=== PATIENT | male | born 1980 | race Caucasian/White ===

== ENCOUNTER 2020-06-16 08:54 | Inpatient (IN) | payer BC ==
[~2020-06-16] VITALS: Ht 172.7 cm; Wt 93.3 kg
[2020-06-16] VITALS (10 sets, daily range): BP systolic 118–144; BP diastolic 78–103
[2020-06-16] MEDS ORDERED: OXCA300T19 PO (09:00)
[2020-06-16] MEDS ORDERED: TRAM50TA PO (09:00)
[2020-06-16] MEDS ORDERED: MIRT15TA3 PO (09:00)
--- NOTE | 2020-06-16 09:29 | PDOC2 ---
[facility] 06/16/20 0929: CONSULT Date of Consult Date of Consult DATE: 06/16/20 TIME: 09:26 Reason for Consult Reason for Consult: appendicitis Referring Physician Referring Physician: ER Identification/Chief Complaint Chief Complaint abdominal pain Source Source: Chart review, Patient History of Present Illness Reason for Visit: RLQ pain starting last night. Associated nausea, no diarrhea or constipation. No similar symptoms in past. Pain medication helps alleviate. No aggravating factors Past Medical History Psych: Anxiety Past Surgical History Past Surgical History: No pertinent history Family History Family History: Other (noncontributory to current illness ) Social History <1 pack per day (vap) ALCOHOL: occassional Drugs: None Lives: Alone Current Medications Current Medications Active Scripts Active Reported Oxcarbazepine 300 Mg Tablet 1 Tab PO HS 30 Days Mirtazapine 15 Mg Tablet 1 Tab PO QHS Tramadol Hcl 50 Mg Tablet 50 Mg PO Q4HRS PRN Allergies Allergies: Coded Allergies: No Known Drug Allergies (Unverified , 06/16/20) ROS General: No: Chills, Other (fevers ) PSYCHOLOGICAL ROS: No: Anxiety, Depression Eyes: No Blurry vision, No Double vision HEENT: No: Heacaches, Sore Throat Hematological and Lymphatic: No: Bleeding Problems, Blood Clots Respiratory: No: Cough, Shortness of breath Cardiovascular: No Chest Pain, No Palpitations Gastrointestinal: Yes Other (see hpi) Genitourinary: No Dysuria, No Hematuria Musculoskeletal: No Joint Pain, No Muscle Pain Neurological: No Impaired Coord/balance, No Numbness/Tingling Skin: No Pruritus, No Rash Physical Exam General: Alert, Oriented X3, Cooperative HEENT: Atraumatic, PERRLA Lungs: Clear to auscultation, Normal air movement Heart: Regular rate, Normal S1, Normal S2 Abdomen: Soft, Other (ND, TTP RLQ ) Extremities: No clubbing, No cyanosis Skin: No rashes, No breakdown Neuro: Normal gait, Normal speech Psych/Mental Status: Mental status NL, Mood NL MUSCULOSKELETAL: No deformity, No swelling Vitals VITALS Vital Signs Date Time Temp Pulse Resp B/P (MAP) Pulse Ox O2 Delivery O2 Flow Rate FiO2 06/16/20 08:15 98.1 84 20 144/103 (117) 97 Room Air 98.1 Assessment/Plan Assessment/Plan acute appendicitis plan OR today ELAINE,CRISTINA W MD 06/16/20 1413: CONSULT Assessment/Plan Assessment/Plan Patient seen and examined by me currently resting comfortably in bed does describe some right lower quadrant abdominal pain abdomen is soft nondistended tender to palpation right lower quadrant CT scan reviewed showing signs consistent with acute appendicitis without abscess. Plan for laparoscopic appendectomy today. Agree with Neelima assessment and plan GUILLE BLACKMAN APRN Jun 16, 2020 09:29 CRISTINA ELAINE MD Jun 16, 2020 14:13
[2020-06-16] MEDS ORDERED: cefOXitin SODIUM IV Push 1 GM VIAL. IVP PRN (09:30)
--- NOTE | 2020-06-16 09:30 | PDOC1 ---
History and Physical Date of Admission Date of Admission DATE: 06/16/20 TIME: 09:29 Identification/Chief Complaint Chief Complaint Abdominal Pain Source Source: Patient History of Present Illness History of Present Illness Mr Tomlin is a 39-year-old male [place] w/ PMHx nephrolithiasis, tobacco use (vape) who awoken from his sleep around midnight with sudden onset right lower quadrant abdominal pain and came to [facility] ED and was transferred to [facility] for further care. The patient was feeling fine most the day, did eat a few kazakh sausage sandwiches for dinner and experienced some abdominal fullness and some ep igastric and periumbilical tenderness which went away by the time he went to bed, took his sleep medication and PTSD medication. The pain is deep and cramping. It is moderate in intensity. Patient had 2 normal bowel movements prior to falling asleep. He has not had any nausea or vomiting. Denies fever or chills. He does have history of kidney stones but states this only hurts in the front and so it feels different. No history of abdominal surgery, only other surgery is wisdom tooth extraction, no abnormal bleeding with this. Labs significant for NA 141, K3.9, BUN 17, CR 1.4, glucose 120, WBC 12.9, Hb 15.5, platelets 237, LFTs within normal limits. Rapid COVID-19 was negative. Past Medical History Psych: Anxiety, Other (PTSD) Past Surgical History Past Surgical History: No pertinent history Family History Family History: Other (noncontributory to current illness ) Social History Smoke: <1 pack per day (vap) ALCOHOL: occassional Drugs: None Current Medications Current Medications Active Scripts Active Reported Oxcarbazepine 300 Mg Tablet 1 Tab PO HS 30 Days Mirtazapine 15 Mg Tablet 1 Tab PO QHS Tramadol Hcl 50 Mg Tablet 50 Mg PO Q4HRS PRN Allergies Allergies: Coded Allergies: No Known Drug Allergies (Unverified , 06/16/20) ROS General: No: Chills, Night Sweats, Fatigue, Malaise, Appetite, Other PSYCHOLOGICAL ROS: No: Anxiety, Behavioral Disorder, Concentration difficultie, Decreased libido, Depression, Disorientation, Hallucinations, Hostility, Irritablity, Memory difficulties, Mood Swings, Obsessive thoughts, Physical abuse, Sexual abuse, Sleep disturbances, Suicidal ideation, Other Eyes: No Blurry vision, No Decreased vision, No Double vision, No Dry eyes, No Excessive tearing, No Eye Pain, No Itchy Eyes, No Loss of vision, No Photophobia, No Scotomata, No Uses contacts, No Uses glasses, No Other HEENT: No: Heacaches, Visual Changes, Hearing change, Nasal congestion, Nasal discharge, Oral lesions, Sinus pain, Sore Throat, Epistaxis, Sneezing, Snoring, Tinnitus, Vertigo, Vocal changes, Other ALLERGY AND IMMUNOLOGY: No: Hives, Insect Bite Sensitivity, Itchy/Watery Eyes, Nasal Congestion, Post Nasal Drip, Seasonal Allergies, Other Hematological and Lymphatic: No: Bleeding Problems, Blood Clots, Blood Transfusions, Brusing, Night Sweats, Pallor, Swollen Lymph Nodes, Other ENDOCRINE: No: Breast Changes, Galactorrhea, Hair Pattern Changes, Hot Flashes, Malaise/lethargy, Mood Swings, Palpitations, Polydipsia/polyuria, Skin Changes, Temperature Intolerance, Unexpected Weight Changes, Other Breast: No New/Changing Breast Lumps, No Nipple changes, No Nipple discharge, No Other Respiratory: No: Cough, Hemoptysis, Orthopnea, Pleuritic Pain, Shortness of breath, SOB with excertion, Sputum Changes, Stridor, Tachypnea, Wheezing, Other Cardiovascular: No Chest Pain, No Palpitations, No Orthopnea, No Paroxysmal Noc. Dyspnea, No Edema, No Lt Headedness, No Other Gastrointestinal: Yes Abdominal Pain; No Nausea, No Vomiting, No Diarrhea, No Constipation, No Melena, No Hematochezia, No Other Genitourinary: No Dysuria, No Frequency, No Incontinence, No Hematuria, No Retention, No Discharge, No Urgency, No Pain, No Flank Pain, No Other, No , No , No , No , No , No , No Musculoskeletal: No Gait Disturbance, No Joint Pain, No Joint Stiffness, No Joint Swelling, No Muscle Pain, No Muscular Weakness, No Pain In:, No Swelling In:, No Other Neurological: No Behavorial Changes, No Bowel/Bladder ControlChng, No Confusion, No Dizziness, No Gait Disturbance, No Headaches, No Impaired Coord/balance, No Memory Loss, No Numbness/Tingling, No Seizures, No Speech Problems, No Tremors, No Visual Changes, No Weakness, No Other Skin: No Dry Skin, No Eczema, No Hair Changes, No Lumps, No Mole Changes, No Mottling, No Nail Changes, No Pruritus, No Rash, No Skin Lesion Changes, No Other, No Acne Physical Exam General: Alert, Oriented X3, Cooperative, mild distress HEENT: Atraumatic, PERRLA, EOMI, Mucous membr. moist/pink Lungs: Clear to auscultation, Normal air movement Heart: S1S2, RRR, no thrills, no rubs, no gallops, no murmurs Abdomen: Normal bowel sounds, Soft, No hepatosplenomegaly, No masses, Other (RLQ tender) Rectal Exam: not examined Extremities: No clubbing, No cyanosis, No edema, Normal pulses, No tenderness/swelling Skin: No rashes, No breakdown, No significant lesion Neuro: Normal gait, Normal speech, Strength at 5/5 X4 ext, Normal tone, Sensation intact, Cranial nerves 3-12 NL, Reflexes 2+ Psych/Mental Status: Mental status NL, Mood NL Vitals Vitals Vital Signs Date Time Temp Pulse Resp B/P (MAP) Pulse Ox O2 Delivery O2 Flow Rate FiO2 06/16/20 08:15 98.1 84 20 144/103 (117) 97 Room Air 98.[address] images obtained through the abdomen and pelvis with contrast. Abdominal aorta is not aneurysmal. No intrahepatic bile duct dilation. The liver is low density which can be seen with fatty infiltration. No peripancreatic fluid collection. Spleen unremarkable. Nonobstructive right renal stone without hydronephrosis. Urinary bladder is partially distended. Wall of the urinary bladder is mildly prominent but the latter is not very distended. The appendix measures approximately 8 mm with adjacent inflammatory changes and mucosal hyperenhancement. There is a couple of mildly prominent small bowel loops in a nonspecific pattern. Degenerative changes the spine. Mild scoliotic curvature the spine. IMPRESSION: The appendix is mildly dilated with adjacent edema to the fat concerning for acute appendicitis. Nonobstructive right renal stone. The urinary bladder wall is mildly prominent but not very distended therefore portion of this could be secondary to lack of distention VTE Prophylaxis Ordered VTE Prophylaxis Devices: No VTE Pharmacological Prophylaxi: No Assessment/Plan Assessment/Plan A/P: Appendicitis - no sign of perforation. Surgery consulted, cont zosyn. pain control H/o nephrolithiasis - stable CATRACHITA - likely vasomotor nephropathy. Hydrate Sepsis - 2/2 appendicitis, started on zosyn, will continue. FEN - NPO PPX - SCDs FULL CODE Dispo - inpatient. No further medical testing prior to surgery. Low cardiac risk for surgery. Justifications for Admission Other Justification BALTA WOODRUFF MD Jun 16, 2020 09:30
[2020-06-16] MEDS ORDERED: traMADol 50 MG TABLET PO PRN (09:45)
[2020-06-16] MEDS ORDERED: ZOLPIDEM 5 MG TABLET. PO PRN (09:45)
[2020-06-16] MEDS ORDERED: ONDANSETRON PF 4 MG/2 ML VIAL. IV PRN (09:45)
[2020-06-16] MEDS ORDERED: MORPHINE SULFATE 2 MG/ML VIAL. IV PRN (09:45)
[2020-06-16] MEDS ORDERED: ACETAMINOPHEN 650 MG SUPP.RECT. PR PRN (09:45)
[2020-06-16] MEDS ORDERED: ACETAMINOPHEN 325 MG TABLET. PO PRN (09:45)
[2020-06-16] MEDS: PIPERACILLIN/TAZOBACTAM 3.375 GM in IV NORMAL SALINE 50ML 50 ML IV SCH ×2 (10:32→19:44)
[2020-06-16] MEDS: IV NORMAL SALINE 1000ML BAG 1,000 ML IV SCH ×2 (10:32→19:31)
[2020-06-16] MEDS: NICOTINE 21MG PATCH. TD SCH (10:40)
--- NOTE | 2020-06-16 13:58 | NUR ---
TRANSFERRED FROM [facility] ER. STARTED HAVE RLQ PAIN LAST NIGHT AROUND MIDNIGHT. IT WOKE HIM UP AND THEN THE PAIN BECAME PROGRESSIVELY WORSE. DR. ELAINE AND RANJAN HERE FOR ADMISSION. ZOSYN STARTED. SALINE LOCK IN RIGHT ANTECUBITAL PATENT WITH NS AT 100 CC HR. LAST BM WAS YESTERDAY. CONSENT FOR SURGERY OBTAINED. ADMISSION PROCESS COMPLETED. -WILL BE BRINGING HIS [employer] AND TAKE HIS NECKLACE AND BRACELET
[2020-06-16] MEDS ORDERED: PROPOFOL 10 MG/ML (20ML) VIAL. IV ONE (15:36)
[2020-06-16] MEDS ORDERED: LIDOCAINE 2% PF 5 ML VIAL. ONE (15:36)
[2020-06-16] MEDS ORDERED: ROCURONIUM 50 MG/5 ML VIAL. ONE (15:36)
[2020-06-16] MEDS ORDERED: DEXAMETHASONE SOD PHOS 4 MG/ML VIAL ONE (15:36)
[2020-06-16] MEDS ORDERED: ONDANSETRON PF 4 MG/2 ML VIAL. ONE (15:36)
[2020-06-16] MEDS ORDERED: SUCCINYLCHOLINE 200 MG/10 ML VIAL. ONE (15:36)
[2020-06-16] MEDS ORDERED: fentaNYL PF VIAL 100 MCG/2 ML VIAL ONE (15:37)
[2020-06-16] MEDS ORDERED: MIDAZOLAM HCL/PF 2 MG/2 ML VIAL. ONE (15:37)
[2020-06-16] MEDS ORDERED: BUPIVACAINE-EPI 0.5%-1:200000 MPF 30 ML VIAL. ONE (16:42)
[2020-06-16] MEDS ORDERED: cefOXitin SODIUM IV Push 2 GM VIAL. IVP ONE (16:53)
[2020-06-16] MEDS ORDERED: GLYCOPYRROLATE 1 MG/5 ML VIAL. ONE (17:21)
[2020-06-16] MEDS ORDERED: NEOSTIGMINE METHYLSULFATE 5 MG/5 ML SYRINGE. ONE (17:21)
--- NOTE | 2020-06-16 17:46 | PDOC4 ---
Operative Note Operative Note Date: 06/16/2020 at 1744 Preoperative diagnosis: Acute appendicitis Postoperative diagnosis: Same Procedure: Laparoscopic appendectomy Surgeon: Jatin Specimen: Appendix Dictation: Patient is 39-year-old male who was mated to the hospital with right lower quadrant abdominal pain and a CT scan showing signs consistent with acute appendicitis. Procedure of laparoscopic appendectomy was explained to the patient detail was benefits were also discussed including bleeding infection injury to intra-abdominal contents possibly necessitating further or open operations alternatives to this procedure also discussed with the patient who seemed to understand and gave both verbal and written consent to have the procedure performed. Patient was taken to the operating room placed in the supine position general anesthesia was initiated once patient was sleeping intubated his abdomen was prepped and draped usual sterile fashion using ChloraPrep. An area just below the umbilicus was injected with half percent Marcaine with epinephrine incision was made 11 blade scalpel a varies needle was placed within the abdomen creating pneumoperitoneum once this complete 12 mm port was placed and a 5 mm camera was placed within the abdomen which was inspected no other abnormalities were noted 5 mm port was placed low in the midline under direct visualization and one in the right mid abdomen the appendix was grasped retracted towards the anterior abdominal wall a window was propaga herlinda through the mesoappendix at the very base the appendix with [place] dissector an Endo CANDY stapler was then used to staple and transect the base the appendix a second load was used to staple and transect the mesoappendix the appendix was then placed in Endo Catch bag removed and the umbilicus right lower quadrant was irrigated and suctioned dry hemostasis deemed to be appropriate and the pneumoperitoneum was reduced all ports were removed the fascial defect at the umbilicus was closed with a [id number] 0 Vicryl suture and the skin was reapproximated all port sites for subcuticular Monocryl Mastisol Steri-Strips and island dressings were applied. Patient was awakened and extubated in the operating room taken to recovery in stable condition all sponge instrument needle counts listed as correct estimated blood loss 10 mL. CRISTINA ELAINE MD Jun 16, 2020 17:46
[2020-06-16] MEDS ORDERED: SEVOFLURANE 31 TO 60 MINUTES. IH ONE (17:49)
--- NOTE | 2020-06-16 18:03 | NUR ---
Mefoxin given IV push prior to surgery at 1658 by Jayla Hidalgo CRNA
[2020-06-16] MEDS: KETOROLAC 15 MG/ML VIAL. IVP SCH (19:44)
[2020-06-16] MEDS ORDERED: MIRTAZAPINE 15 MG TABLET PO SCH (21:00)
[2020-06-16] MEDS ORDERED: OXcarbazepine 300 MG TABLET PO SCH (21:00)
[2020-06-17] MEDS: KETOROLAC 15 MG/ML VIAL. IVP SCH ×2 (00:46→06:06)
[2020-06-17] MEDS: PIPERACILLIN/TAZOBACTAM 3.375 GM in IV NORMAL SALINE 50ML 50 ML IV SCH ×2 (00:47→06:07)
[2020-06-17 03:14] VITALS: BP 117/63
[2020-06-17] MEDS: IV NORMAL SALINE 1000ML BAG 1,000 ML IV SCH (05:31)
[2020-06-17 06:28] VITALS: BP 111/71
--- NOTE | 2020-06-17 08:00 | NUR ---
up and about. wants iv out and wants to go home . awaiting surgeon and medical doctor. very talkative; denies pain--"just sore". 3 telfa islands on abdomen are clean and dry ambulates in the garcia frequently
[2020-06-17] MEDS: NICOTINE 21MG PATCH. TD SCH (09:00)
--- NOTE | 2020-06-17 09:25 | PDOC ---
GUILLE BLACKMAN APRN 06/17/20 0925: SURGICAL PROGRESS NOTE DATE: 06/17/20 TIME: 09:24 Subjective tolerating diet feels well pain managed Vital Signs Vital Signs Date Time Temp Pulse Resp B/P (MAP) Pulse Ox O2 Delivery O2 Flow Rate FiO2 06/17/20 06:28 98.0 86 18 111/71 (84) 94 Room Air 98.0 06/16/20 18:20 3 I&O Intake and Output 06/17/20 07:00 Intake Total 1200 ml Output Total 670 ml Balance 530 ml Intake Oral 400 ml IV Total 800 ml Output Urine Total 650 ml Estimated Blood Loss 20 ml # Voids 3 General: Alert, Oriented X3, Cooperative Abdomen: Soft, Other (lap sites dry) Assessment/Plan s/p appy--home pending CBC Justicifation of Admission Dx: Justifications for Admission: Justification of Admission Dx: Yes Comments: s/p appy CRISTINA ELAINE MD 06/17/20 1052: SURGICAL PROGRESS NOTE Assessment/Plan Patient doing quite well post status post appendectomy stable from surgical standpoint okay to be discharged when okay with internal medicine GUILLE BLACKMAN APRN Jun 17, 2020 09:25 CRISTINA ELAINE MD Jun 17, 2020 10:52
[2020-06-17] MEDS ORDERED: IBUPROFEN 400 MG TABLET. PO ONE (11:00)
[2020-06-17 11:02] VITALS: BP 128/82
--- NOTE | 2020-06-17 11:13 | PDOC ---
[facility] PROGRESS NOTE Date of Service DOS: DATE: 06/17/20 TIME: 11:11 History of Present Illness History of Present Illness Patient is feeling well today, anxious to go home. States his pain is well controlled with just Motrin, however he has tramadol at home if necessary. Vitals/I&O Vitals/I&O: Vital Signs Date Time Temp Pulse Resp B/P (MAP) Pulse Ox O2 Delivery O2 Flow Rate FiO2 06/17/20 11:02 97.7 82 20 128/82 (97) 96 Room Air 97.7 06/16/20 18:20 3 I & O 06/16/20 06/16/20 06/17/20 15:00 23:00 07:00 Intake Total 1200 ml Output Total 150 ml 170 ml 350 ml Balance -150 ml 1030 ml -350 ml Physical Exam General: Alert, Oriented X3, Cooperative Heart: Regular rate, Normal S1, Normal S2 Abdomen: Soft, Other (lap sites dry) Extremities: No clubbing, No cyanosis, No edema, Normal pulses, No tenderness/swelling Skin: No rashes, No breakdown, No significant lesion Review of Systems Review of Systems: My abdominal pain. Denies fever, denies nausea, denies shortness of breath. Assessment and Plan Assessmemt and Plan Acute appendicitis Plan: S/P laparoscopic appendectomy. Pain well controlled. He is stable for discharge. Comment Review of Relevant I have reviewed the following items jai (where applicable) has been applied. Medications: Current Medications Medications (Trade) Dose Ordered Sig/Ugo Route PRN Reason Start Time Stop Time Status Last Admin Dose Admin Mirtazapine (Remeron) 15 mg QHS PO 06/16/20 21:00 06/16/20 21:15 Oxcarbazepine (Trileptal) 300 mg HS PO 06/16/20 21:00 06/16/20 21:15 Bupivacaine HCl/ Epinephrine Bitart (Sensorcain-Epi 0.5%-1:[id number] Mpf) 30 ml STK-MED ONCE .ROUTE 06/16/20 16:42 06/16/20 16:43 DC 06/16/20 17:26 Ketorolac Tromethamine (Toradol 15mg Vial) 15 mg Q6HRS IVP 06/16/20 18:00 06/17/20 17:59 06/17/20 06:06 Ibuprofen (Motrin) 800 mg 1X ONCE PO 06/17/20 11:00 06/17/20 11:01 DC 06/17/20 10:55 Justifications for Admission Abdominal Pain Indications Is patient in severe pain?: Yes Justification for admission: Patient has severe pain that requires (parenteral analgesic-please state analgesics and route) at least every 4 hours necessitating inpatient level of care. Is NPO status required?: Yes Justification for admission: Patient may require to be NPO for greater 24hours making it medically necessary to manage patient as inpatient. Other Justification MARNIE ODELL MD Jun 17, 2020 11:13
--- NOTE | 2020-06-17 11:14 | PDOC3 ---
Discharge Summary Visit Information Date of Admission: Jun 14, 2020 Date of Discharge: Jun 17, 2020 Final Diagnosis Appendicitis Brief Hospital Course Allergies Allergies Coded Allergies Type Severity Reaction Last Updated Verified No Known Drug Allergies 06/16/20 No Vital Signs Vital Signs Date Time Temp Pulse Resp B/P (MAP) Pulse Ox O2 Delivery O2 Flow Rate FiO2 06/17/20 11:02 97.7 82 20 128/82 (97) 96 Room Air 97.7 06/16/20 18:20 3 Brief Hospital Course Mr. Tomlin is a 39 old male who presented with acute appendicitis. He had a laparoscopic appendectomy, with appropriate pain management. He was stable for discharge home. Assessment Assessment Acute appendicitis Discharge Information Condition at Discharge: Improved Disposition/Orders: D/C to Home Scheduled Mirtazapine (Mirtazapine) 15 Mg Tablet, 1 TAB PO QHS for anxiety/sleep, #30 Ref 3 (Reported) Entered as Reported by: LLUVIA CASTILLO on 06/16/20899 Last Action: Continued on 06/16/20934 by BALTA WOODRUFF MD Oxcarbazepine (Oxcarbazepine) 300 Mg Tablet, 1 TAB PO HS for sleep anxiety for 30 Days, #30 Ref 0 (Reported) Entered as Reported by: LLUVIA CASTILLO on 06/16/20899 Last Action: Continued on 06/16/20934 by BALTA WOODRUFF MD Scheduled PRN Tramadol Hcl (Tramadol Hcl) 50 Mg Tablet, 50 MG PO Q4HRS PRN for PAIN, (Reported) Entered as Reported by: LLUVIA CASTILLO on 06/16/20899 Last Action: Continued on 06/16/20934 by BALTA WOODRUFF MD Justicifation of Admission Dx: Justifications for Admission: Justification of Admission Dx: Yes MARNIE ODELL MD Jun 17, 2020 11:14
--- NOTE | 2020-06-17 11:30 | NUR ---
dismissed to home with personal belongings. follow up with Dr. Steiner in 2 weeks--to call for an appt. verbalized understanding restrictions to activities of daily living such as bathing lifting restrictions
--- NOTE | 2020-06-24 11:08 | PATHOLOGY ---
[facility] Accession Number: [id number] . 01 Material submitted: . appendix - APPENDIX AND CONTENTS IN FORMALIN . 01 Clinical history: . ACUTE APPENDICITIS . 02 Diagnosis: Vermiform appendix, excision: - Acute appendicitis with acute serositis. - Negative for malignancy. (MLK:pit; 06/24/2020) RUST 06/24/2020 0724 Local . 02 Electronically signed: . Carolyn Gallardo MD, Pathologist NPI- [id number] . 01 Gross description: . The specimen is received in formalin, labeled "Felice Tomlin, appendix and contents". Received is a vermiform appendix measuring 4.8 cm in length by up to 0.9 cm in diameter with a moderate amount of attached mesoappendix. The serosal surface is pink-spann and glistening in appearance. The surgical margin is closed with a line of faye. The faye are removed and the new margin is inked black. Sectioning reveals a pinpoint to patent lumen filled with a slight amount of blood coagulum. The specimen is submitted entirely from proximal to distal aspects in cassettes A1 through A4, with the proximal margin and bisected tip submitted in cassette A1. (CAA; 06/17/2020) QAC/QAC 06/17/2020 1555 Local . 02 Pathologist provided ICD-10: K35.80 . 02 CPT . 873978 Specimen Comment: A courtesy copy of this report has been sent to [phone], [phone] Specimen Comment: [id number] Specimen Comment: Report sent to / Performed at: [address], [place], [place] [id number] MD Dk Umana MD Phone: [phone] Performed at: [address] [id number] MD Tapan Lala MD Phone: [phone]
== END 2020-06-17 11:30 | disposition home or self-care (01) | DRG 854 ==
LOC: 4 SOUTHEST 08:54
PROVIDERS: ADMIT Internal Medicine; ATTEND Internal Medicine
PROC: 0DTJ4ZZ Resection of Appendix, Percutaneous Endoscopic Approach (ICD-10-PCS; principal; 2020-06-16 16:00)
DX: A41.9 Sepsis, unspecified organism (principal); K35.80 Unspecified acute appendicitis; N17.9 Acute kidney failure, unspecified; F17.210 Nicotine dependence, cigarettes, uncomplicated; F43.10 Post-traumatic stress disorder, unspecified; N20.0 Calculus of kidney; Z20.828 Contact with and (suspected) exposure to other viral communicable diseases
CPT/HCPCS: 36415; 88304; A7015; J0330; J0694; J1100; J1885; J2250; J2405; J2543; J2704; J2710; J3010; J3490; J7030; G0378